=== PATIENT | male | born 1970 | race Caucasian/White ===

== ENCOUNTER 2017-07-27 10:15 | Inpatient (IN) | payer OTHER ==
[~2017-07-27] VITALS: Ht 177.8 cm; Wt 122.0 kg
[2017-07-27] MEDS ORDERED: NEURONTIN800 MG PO (12:24)
[2017-07-27] MEDS ORDERED: CARVEDILOL3.125 MG PO (12:24)
[2017-07-27] MEDS ORDERED: ENALAPRIL MALEA20 MG PO (12:24)
[2017-07-27] MEDS ORDERED: LASIX40 MG PO (12:25)
[2017-07-27] MEDS ORDERED: ASA81 MG PO (12:25)
[2017-07-27] MEDS ORDERED: CLONAZEPAM0.5 MG PO (12:25)
[2017-07-27] MEDS ORDERED: ZOLOFT50 MG PO (12:25)
[2017-07-27] MEDS ORDERED: ALEGRA PO (12:26)
[2017-07-27] MEDS ORDERED: ZOCOR20 MG PO (12:26)
[2017-08-07] MEDS ORDERED: ALLEGRA ALLERGY60 MG PO (08:05)
[2017-08-08] MEDS ORDERED: INTESTINEX680 M1 PO (12:58)
[2017-08-08] MEDS ORDERED: ULTRACET PO (12:58)
[2017-08-08] MEDS ORDERED: OMEPRAZOLE20 M1 PO (12:58)
== END 2017-08-08 15:48 | disposition home or self-care (01) | DRG 330 ==
LOC: O/R 08-04 09:18 → SURH 08-04 09:18
PROVIDERS: Surgery; Urology
PROC: 0DNW4ZZ Release Peritoneum, Percutaneous Endoscopic Approach (ICD-10-PCS; 2017-08-04)
PROC: 0DJD8ZZ Inspection of Lower Intestinal Tract, Via Natural or Artificial Opening Endoscopic (ICD-10-PCS; 2017-08-04)
PROC: 0T788DZ Dilation of Bilateral Ureters with Intraluminal Device, Via Natural or Artificial Opening Endoscopic (ICD-10-PCS; 2017-08-04)
PROC: 0DTN4ZZ Resection of Sigmoid Colon, Percutaneous Endoscopic Approach (ICD-10-PCS; principal; 2017-08-04 12:15)
PROC: 0DBN4ZZ Excision of Sigmoid Colon, Percutaneous Endoscopic Approach (ICD-10-PCS; 2017-08-04 12:15)
PROC: 3E0F7GC Introduction of Other Therapeutic Substance into Respiratory Tract, Via Natural or Artificial Opening (ICD-10-PCS; 2017-08-05)
PROC: 4A12X4Z Monitoring of Cardiac Electrical Activity, External Approach (ICD-10-PCS; 2017-08-05)
PROC: 4A033R1 Measurement of Arterial Saturation, Peripheral, Percutaneous Approach (ICD-10-PCS; 2017-08-05)
DX: K57.20 Diverticulitis of large intestine with perforation and abscess without bleeding (principal); G47.33 Obstructive sleep apnea (adult) (pediatric); I10 Essential (primary) hypertension; K66.0 Peritoneal adhesions (postprocedural) (postinfection); Z43.3 Encounter for attention to colostomy; E66.01 Morbid (severe) obesity due to excess calories

== ENCOUNTER 2017-10-02 08:49 | Outpatient (CLI) | payer OTHER ==
[~2017-10-02 08:49] MED LIST: ALEGRA PO; ALLEGRA ALLERGY60 MG PO; ASA81 MG PO; CARVEDILOL3.125 MG PO; CLONAZEPAM0.5 MG PO; ENALAPRIL MALEA20 MG PO; INTESTINEX680 M1 PO; LASIX40 MG PO; NEURONTIN800 MG PO; OMEPRAZOLE20 M1 PO; ULTRACET PO; ZOCOR20 MG PO; ZOLOFT50 MG PO
== END 2017-10-02 08:57 | disposition home or self-care (01) ==
LOC: SONOGRAMA 08:49
DX: M25.511 Pain in right shoulder (principal)

== ENCOUNTER 2019-01-07 09:44 | Day surgery (SDC) | payer OTHER | END 2019-01-07 14:30 | disposition home or self-care (01) | LOC: AMB-ENDOS 09:44 | DX: K57.20 Diverticulitis of large intestine with perforation and abscess without bleeding (principal) ==